=== PATIENT | female | born 1980 | race Caucasian/White ===

== ENCOUNTER 2022-10-28 20:59 | Outpatient (REF) | payer BC, SELFPAY ==
[2022-11-03 21:07] LABS: Age Gdln ACOG Testing Note (.); HPV Aptima Positive (Negative); HPV Genotype 16 Negative (Negative); HPV Genotype 18,45 Negative (Negative); IGP, Aptima HPV, rfx 16/18,45 Note (.)
== END 2022-10-28 21:00 | disposition home or self-care (01) ==
LOC: LAB 20:59
PROVIDERS: Visit Provider Physician Assistant
DX: Z12.4 Encounter for screening for malignant neoplasm of cervix (principal)
CPT/HCPCS: G0145

== ENCOUNTER 2022-11-18 09:17 | Outpatient (OUT) | payer BC, SELFPAY ==
--- NOTE | 2022-11-18 09:28 | MM_ITS ---
Patient: SWATI PEDROZA Exam Date: 11/18/2022 : 1980 Gender:F Ordering : CORRIE Riddle . Admission #: [id number] Family : NON-STAFF PHYSICIAN Order #: [id number] CLICK HERE TO VIEW EXAM RADIOLOGY REPORT PROCEDURE: MM TOMOSYNTHESIS SCREENING BI COMPARISON: None. INDICATIONS: Screening Calculator Name NCI Breast Cancer Risk Assessment Tool 5 Year Breast Cancer Risk 0.50% Lifetime Breast Cancer Risk 8.50% Personal Breast Cancer No Personal Ovarian Cancer No Treatments None Family Cancers None LOCATION: [facility] BREAST COMPOSITION: Scattered areas fibroglandular density. FINDINGS: DIAGNOSTIC CATEGORY 1--NEGATIVE. RIGHT BREAST: No significant suspicious finding. LEFT BREAST: No significant suspicious finding. RECOMMENDATIONS: ROUTINE MAMMOGRAM AND CLINICAL EVALUATION IN 12 MONTHS. PLEASE NOTE: A NORMAL MAMMOGRAM DOES NOT EXCLUDE THE POSSIBILITY OF BREAST CANCER. A CLINICALLY SUSPICIOUS PALPABLE LUMP SHOULD BE BIOPSIED. Dictated by: Amauri Cardenas MD on 11/18/2022 at 10:53 Approved by: Amauri Cardenas MD on 11/18/2022 at 10:54
== END 2022-11-18 09:18 | disposition home or self-care (01) ==
LOC: MAMMO 09:20
PROVIDERS: Visit Provider Physician Assistant
DX: Z12.31 Encounter for screening mammogram for malignant neoplasm of breast (principal)
CPT/HCPCS: 77063; 77067

== ENCOUNTER 2023-11-01 20:54 | Outpatient (REF) | payer SELFPAY | END 2023-11-01 20:55 | disposition home or self-care (01) | LOC: LAB 20:54 | PROVIDERS: Visit Provider Physician Assistant | DX: Z01.419 Encounter for gynecological examination (general) (routine) without abnormal findings (principal) | CPT/HCPCS: 87624; 88175 ==

== ENCOUNTER 2024-12-18 20:01 | Outpatient (REF) | payer SELFPAY ==
--- OUTSIDE RECORDS SUMMARY | 2024-12-18 13:00 | XMS_ITS | Encounter Summary ---
Author Organization [facility] Address [address] [place] [address] Care Team Providers Care Media Sales Consultant Name Role Phone Litzy Jessica Stevens MD Primary Care Provider [phone] Jesica Cobb ANALYST [facility] Unavailable [phone] Reason for Visit * ReasonCommentsWell Women Visit Encounter Details DateTypeDepartmentCare Team (Latest Contact Info)Mgstgnllxjq79/03/2025 1:00 PM ESTProcedure Visit SUMA Douglas OBPATRICK [address] [address] Elif Riddle PA [address] [place], [place] [id number] Well woman exam with routine gynecological exam; Encounter for screening mammogram for malignant neoplasm of breast Social History Tobacco UseTypesPacks/DayYears UsedDateSmoking Tobacco: NeverSmokeless Tobacco: NeverAlcohol UseStandard Drinks/WeekCommentsNot Currently0 (1 standard drink = 0.6 oz pure alcohol)Caffeine intake: 1-2 cups per dayHumiliation, Afraid, Rape, and Kick questionnaireAnswerDate RecordedWithin the last year, have you been afraid of your partner or ex-partner?No12/08/2022Within the last year, have you been humiliated or emotionally abused in other ways by your partner or ex-partner?No12/08/2022Within the last year, have you been kicked, hit, slapped, or otherwise physically hurt by your partner or ex-partner?No12/08/2022Within the last year, have you been raped or forced to have any kind of sexual activity by your partner or ex-partner?No12/08/2022Social Connection and Isolation Panel AnswerDate RecordedIn a typical week, how many times do you talk on the phone with family, friends, or neighbors?Once a week12/08/2022How often do you get together with friends or relatives?Once a week12/08/2022How often do you attend muslim or episcopal services?More than 4 times per year12/08/2022o you belong to any clubs or organizations such as muslim groups, unions, [employer] or athletic groups, or school groups?No12/08/2022How often do you attend meetings of the clubs or organizations you belong to?Never12/08/2022re you , , , , never , or living with a partner? 12/08/2022UDIT-CAnswerDate RecordedQ1: How often do you have a drink containing alcohol?Never01/20/2024Q2: How many drinks containing alcohol do you have on a typical day when you are drinking?Patient does not drink01/20/2024Q3: How often do you have six or more drinks on one occasion?Never01/20/2024Overall Financial Resource Strain (CARDIA)AnswerDate RecordedHow hard is it for you to pay for the very basics like food, housing, medical care, and heating?Hard12/08/2022HQ-2 AnswerDate RecordedPatient Health Questionnaire-2 Hfguy38503/22/2023[facility] [place] of Occupational Health - Occupational Stress QuestionnaireAnswerDate RecordedDo you feel stress - tense, restless, nervous, or anxious, or unable to sleep at night because yourmind is troubled all the time - these days?Not at all 12/08/2022Exercise Vital SignAnswerDate RecordedOn average, how many days per week do you engage in moderate to strenuous exercise (like a brisk walk)?6 days 12/08/2022On average, how many minutes do you engage in exercise at this level? 150+ min12/08/2022Hunger Vital SignAnswerDate RecordedWithin the past 12 months, you worried that your food would run out before you got the money to buymore. Sometimes true12/08/2022Within the past 12 months, the food you bought just didn't last and you didn't have money to get more.Sometimes true12/08/2022 PRAPARE - TransportationAnswerDate RecordedIn the past 12 months, has lack of transportation kept you from medical appointments or from getting medications?No 12/08/2022In the past 12 months, has lack of transportation kept you from meetings, work, or from getting things needed for daily living?No12/08/2022 Housing Stability Vital SignAnswerDate RecordedIn the last 12 months, was there a time when you were not able to pay the mortgage or rent on time?Yes12/08/2022 In the last 12 months, how many places have you lived?110In the last 12 months, was there a time when you did not have a steady place to sleep or slept in ashelter (including now)?No12/08/2022CommentsNoSex and Gender InformationValueDate RecordedSex Assigned at QmpdtCzbloj62/12/2023 6:24 PM EDT Legal VltMtrhbr01/15/2023 7:59 PM EDTGender EetucbhsNsravw73/15/2023 7:59 PM EDT Sexual TfncgjtasudWqfmlutx80/12/2023 6:24 PM EDTdocumented as of this encounter Last Filed Vital Signs Vital SignReadingTime TakenCommentsBlood Jiobpfjc607/8011 1:08 PM EST Pulse--Temperature--Respiratory Rate--Oxygen Saturation--Inhaled Oxygen Concentration--Jkbhes81.3 kg (194 lb 12 oz)12/18/2024 1:08 PM ESTHeight--Body Mass Index32.4112 8:15 AM ESTdocumented in this encounter Progress Notes * CORRIE Ding - 12/18/2024 1:00 PM EST Reason for Appointment: Patient ID: Iris Clark is a 44 y.o. female who presents for Well Women Visit Patient presents today for Annual Exam. 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 Mixed hyperlipidemia 10/03/2020 Obesity with body mass index 30 or greater 04/04/2019 Type 2 diabetes mellitus without complication, without long-term current use of insulin (HCC) 04/05/2019 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 Nonalcoholic fatty liver 07/20/2023 Resolved Ambulatory Problems Diagnosis Date Noted 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 Elevated liver enzymes 04/05/2019 Folliculitis 08/06/2016 Overweight (BMI 25.0-29.9) 12/09/2022 Pure hypercholesterolemia 07/04/2019 Past Medical History: Diagnosis Date Acne BMI 30.0-30.9,adult Conductive hearing loss, unspecified laterality Depression screening Diabetes mellitus ([facility]) 2018 Encounter for gynecological examination (general) (routine) without abnormal findings Fatty liver Fracture History of early menarche Oral contraceptive use Pre-diabetes induced hypertension (HHS-HCC) Sciatica HISTORY PAST MEDICAL HISTORY SOCIAL HISTORY Past Medical History: Diagnosis Date Acne as teenager BMI 30.0-30.9,adult Conductive hearing loss, unspecified laterality 2nd to cerumen-left ear Depression screening Diabetes mellitus ([facility]) 2019 Encounter for gynecological examination (general) (routine) without abnormal findings Fatty liver Fracture Fracture at wrist and/hand level-right hand DIP fracture History of early menarche Oral contraceptive use Pre-diabetes induced hypertension (HHS-HCC) resolved after delivery Sciatica unspecified laterality Social History Tobacco Use Smoking status: Never Smokeless tobacco: Never Vaping Use Vaping status: Never Used Substance Use Topics Alcohol use: Not Currently Comment: Caffeine intake: 1-2 cups per day Drug use: Never FAMILY HISTORY Family History Problem Relation Name Age of Onset Diabetes Mother Edna Marian Heart attack Father Devyn Balderama Diabetes Father Devyn Balderama Hypertension Father Devyn Balderama Heart disease Father Quang Shaver Balderama Alcohol abuse Father Quang Shaver Balderama Glaucoma Maternal Grandmother Ashleigh Ayse Mental illness Maternal Grandmother Ashleigh Ayse Hypertension Paternal Grandmother [place] Balderama Heart disease Paternal Grandmother Carmencita Balderama Alcohol abuse Paternal Grandfather Hosea Rivas Alcohol abuse Father's Brother Hosea Rivas SURGICAL HISTORY Past Surgical History: Procedure Laterality Date SECTION, LOW TRANSVERSE x2 (01/23);/pre-eclampsia (05/23) REVIEW OF SYSTEMS Review of Systems: Review of Systems Constitutional: Negative. HENT: Negative. Eyes: Negative. Respiratory: Negative. Cardiovascular: Negative. Gastrointestinal: Negative. Genitourinary: Negative. Musculoskeletal: Negative. Skin: Negative. Neurological: Negative. All other systems reviewed and are negative. Hematological: Negative. Endocrine: Negative. Allergic/Immunologic: Negative. OBJECTIVE Objective: Physical Exam Constitutional: Appearance: Normal appearance. Genitourinary: Right Adnexa: not tender and no mass present. Left Adnexa: not tender and no mass present. No cervical discharge. Breasts: Breasts are soft. Right: Normal. Left: Normal. HENT: Head: Normocephalic. Nose: Nose normal. Mouth/Throat: Mouth: Mucous membranes are moist. Cardiovascular: Rate and Rhythm: Normal rate. Pulmonary: Effort: Pulmonary effort is normal. Abdominal: General: Bowel sounds are normal. Palpations: Abdomen is soft. Musculoskeletal: General: Normal range of motion. Cervical back: Normal range of motion. Neurological: General: No focal deficit present. Mental Status: She is alert. Skin: General: Skin is warm and dry. Psychiatric: Mood and Affect: Mood normal. Vitals and nursing note reviewed. Exam conducted with a milk treater present. Vitals: Estimated body mass index is 32.41 kg/m?? as calculated from the following: Height as of 01/20/24: 5' 5 . Weight as of this encounter: 194 lb 12 oz. BP: 108/80 Patient's last menstrual period was 12/11/2024 (approximate). Assessment/Plan ICD-10-CM 1. Well woman exam with routine gynecological exam Z01.419 THIN PREP TIS PAP AND HR HPV DNA 2. Encounter for screening mammogram for malignant neoplasm of breast Z12.31 Bilateral screening mammogram Bilateral screening mammogram Annual: Patient presents today for an annual exam. Patient states she is doing well and has no complaints. Pap was obtained without difficulty and patient given mammogram order to have scheduled/obtained. Orders Placed This Encounter Procedures Bilateral screening mammogram Follow Up: Patient is to return in one year for annual unless needed otherwise. Documented by Clau Craig MA on behalf of: CORRIE Ding documented in this encounter Plan of Treatment DateTypeDepartmentCare Team (Latest Contact Info)Tuodqvzavcu66/05/2026 9:00 AM ESTProcedure Visit [facility] [address] [place] [address] Elif Riddle PA [address] [place] [address] NameTypePriorityAssociated DiagnosesOrder ScheduleBilateral screening mammogram ImagingRoutine Encounter for screening mammogram for malignant neoplasm of breast Expected: 12/18/2024 (Approximate), Expires: 02/17/2026THIN PREP TIS PAP AND HR HPV DNAPathology and CytologyRoutine Well woman exam with routine gynecological exam Ordered: 12/18/2024documented as of this encounter Visit Diagnoses Diagnosis Well woman exam with routine gynecological exam Routine gynecological examination Encounter for screening mammogram for malignant neoplasm of breast documented in this encounter Additional Health Concerns AssessmentNoted TimePHQ-9 Depression Total Score: 8:00 AM EST documented as of this encounter Care Teams Team MemberRelationshipSpecialtyStart DateEnd Jessica Mcmullen MD PCP - GeneralFamily Medicine07/20/23 Jesica Cobb NP [address] [place] [address] Nurse PractitionerFamily Medicine07/20/23documented as of this encounter
--- OUTSIDE RECORDS SUMMARY | 2024-12-18 20:05 | XMS_ITS | CCD ---
Author Organization [facility] Care Team Providers Care Bin Piler Name Role Phone DR NESTOR ARANGO Attending Unavailable NBA, DR BAEZ Consulting Unavailable NBA, DR BAEZ Admitting Unavailable BRENDA SULLIVAN Attending Unavailable ELIF LEWIS Attending Unavailable Jessica Mcghee MD Primary Care Provider Brenda Sullivan NP Unavailable [phone] Brenda Sullivan NP Unavailable Jessica Mcghee MD Primary Care Provider Jessica Mcghee MD Primary Care Provider Medications Current Medications MedicationDrug Class(es)DatesSig (Normalized)Sig (Original)atorvastatin 20 mg oral tablet (13 sources)HMG-CoA Reductase InhibitorStart: 12-10-2022 End: 00-63-7761roje 1 tablet by mouth once dailyatorvastatin (Lipitor) 20 MG tablet Indications: Mixed hyperlipidemia Take 1 tablet (20 mg) by mouth Daily 90 tablet 3 01/20/2024 01/19/2025 Activeethinyl estradiol 0.035 mg / norgestimate 0.25 mg oral tablet (11 sources)Progestin, EstrogenStart: 18-97-0784uzcq 1 tablet by mouth in the morningMono-Linyah 0.25-35 MG-MCG tablet Indications: control counseling TAKE 1 TABLET BY MOUTH IN THE MORNING 28 tablet 3 12/11/2024 ActiveStart: 54-80-4707bsdawelkhmfp-ethinyl estradiol ([place]-Linyah) 0.25-35 MG-MCG tablet Indications: control counseling Take 1 tablet by mouth in the morning. 28 tablet 1 01/10/2024 ActiveStart: 33-96-7913xjlb 1 tablet by mouth once daily in the morningMono-Linyah 0.25-35 MG-MCG tablet Indications: control counseling TAKE 1 TABLET BY MOUTH EVERY MORNING 28 tablet 1 11/16/2023 Active Start: 73-90-9230jhgleghlkslj-ethinyl estradiol (Ortho-Cyclen) 0.25-35 MG-MCG tablet Indications: control counseling Take 1 tablet by mouth in the morning. 28 tablet 12 10/28/2022 Activelisinopril 5 mg oral tablet (5 sources)Angiotensin Converting Enzyme InhibitorStart: 01-20-2024 End: 90-39-5326xiss 1 tablet by mouth once dailylisinopril 5 MG tablet Indications: Type 2 diabetes mellitus without complication, without long-term current use of insulin (HCC) , Elevated blood pressure reading Take 1 tablet (5 mg) by mouth Daily90 tablet 3 01/20/2024 01/14/2025 ActivemetFORMIN hydrochloride 500 mg oral tablet (13 sources)BiguanideStart: 07-20-2023 End: 24-55-4503wqcy 1 tablet by mouth at mealtimemetFORMIN (Glucophage) 500 MG tablet Indications: Type 2 diabetes mellitus without complication, without long- term current use of insulin (HCC) Take 1 tablet (500 mg) by mouth in the morning. Take with meals. 90 tablet 3 01/20/2024 01/19/2025 Active Problems Active Problems Problem ClassificationProblemDateDocumented DateEpisodic/ChronicDiabetes mellitus without complication (13 sources)Type 2 diabetes mellitus without complication; Translations: [Type 2 diabetes mellitus without complications]Onset: hronic Disorders of lipid metabolism (20 sources)Mixed hyperlipidemia; Translations: [Mixed hyperlipidemia]Onset: 07-04-2019 Resolved: 265415-56-4543XyrounpQvlacecpjcscp and screening for infectious disease (1 source)Encounter for screening for human papillomavirus (HPV); Translations: [ENC SCREENING HUMAN PAPILLOMAVIRUS]Onset: 35-13-0772BpqbrgmzOnbfo circulatory disease (2 sources)Elevated blood pressure; Translations: [Elevated blood-pressure reading, without diagnosis of hypertension]34-92-2278YmovgrrkCpnut liver diseases (13 sources)Non-alcoholic fatty liver; Translations: [Fatty (change of) liver, not elsewhere classified]Onset: 845161-13-5740GnmwwmrEwfkj liver diseases (2 sources)Non-alcoholic fatty liver disease without non-alcoholic steatohepatitis; Translations: [Fatty (change of) liver, not elsewhere classified]Onset: 494004-29-2658SwtjjgnLtwoi nutritional; endocrine; and metabolic disorders (11 sources)Body mass index 30+ - obesity; Translations: [Obesity, unspecified] Onset: 621671-46-1909DawyygzOvnxq screening for suspected conditions (not mental disorders or infectious disease) (11 sources)Encounter for screening for malignant neoplasm of cervix; Translations: [Patient encounter status]Onset: 22-69-4717Ggvfesja Past or Other Problems Problem ClassificationProblemDateDocumented DateEpisodic/ChronicDiseases of mouth; excluding dental (13 sources)Geographic tongue; Translations: [Geographic tongue]Onset: 022718-63-4844ZuvkvjzePyom disorders (5 sources)Mood disordersOnset: Other circulatory disease (11 sources)Acquired arteriovenous fistula aneurysm; Translations: [Arteriovenous fistula, acquired]Onset: 10-03-2020 Resolved: 663855-55-8131BbvodqiPvhnn eye disorders (11 sources)Xanthelasma; Translations: [Xanthelasma of unspecified eye, unspecified eyelid]Onset: 360573-59-9668TgzvnzagHebzb liver diseases (11 sources)Elevated liver enzymes level; Translations: [Abnormal levels of other serum enzymes]Onset: 04-05-2019 Resolved: 052610-79-4036IzyomzvkWwida nutritional; endocrine; and metabolic disorders (11 sources)Body mass index 25-29 - overweight; Translations: [Overweight]Onset: 12-09-2022 Resolved: 280526-73-4450ApfhmzllGromv skin disorders (11 sources)Disorder of skin; Translations: [Follicular disorder, unspecified] Onset: 714687-36-3549IlvqmwptChgfe skin disorders (11 sources)Folliculitis; Translations: [Follicular disorder, unspecified]Onset: 08-06-2016 Resolved: 237458-65-4009Gneaaeqs Results Test NameValueInterpretationReference RangeFacilityIGP,APTIMA HPV,AGE GDLNon 55-11-0537XQW GDLN ACOG TESTINGNote.NOMS HealthcareComment on above:TESTS RESULT FLAG UNITS REF RANGE LAB Clinician Provided Cytology Information Source.............Cervix;Endocervix No. of containers..01 ThinPrep Vial Age Algo ACOG Ana... FLAG LEGEND: L-Low Normal,H-High Normal,LL-Alert Low,HH-Alert High <-Panic Low,>-Panic High,A-Abnormal,AA-Critical Abnormal Performed at: 01 =[facility] [address] [place] [address] Izzy Elena MD, HPV APTIMANegativeNegativeNOMS HealthcareComment on above:This nucleic acid amplification test detects fourteen high- risk HPV types (16,18,31,33,35,39,45,51,52,56,58,59,66,68) without differentiation. Performed at: =[address], [place] [id number] Gasoline Tractor Operator: Izzy Elena MD, Phone: [phone] Performed at: [facility] [address] [place], [place] [id number] Gasoline Tractor Operator: Jules Ricketts MD, Phone: [phone] IGP, APTIMA HPV, RFX 16/18,45Note.NOMS HealthcareComment on above:TESTS RESULT FLAG UNITS REF RANGE LAB DIAGNOSIS: 02 NEGATIVE FOR INTRAEPITHELIAL LESION OR MALIGNANCY. THIS SPECIMEN WAS RESCREENED PART OF OUR VICE PRESIDENT UNDERWRITING PROGRAM. Specimen adequacy: 02 Satisfactory for evaluation. No endocervical component is identified. Performed by: 02 Crissy Loredo, Military Pay Technician ([facility]) QC reviewed by: 02 Pedro Luis Marte, Military Pay Technician ([facility]) . 02 Note: Note 03 The Pap smear is a screening test designed to aid in the detection of premalignant and malignant conditions of the uterine cervix. It is not a diagnostic procedure and should not be used as the sole means of detecting cervical cancer. Both false-positive and false-negative reports do occur. Test Methodology: Note 03 This liquid based ThinPrep(R) pap test was screened with the use of an image guided system. HPV Genotype Reflex Note 02 Criteria not met, HPV Genotype not performed. FLAG LEGEND: L-Low Normal,H-High Normal,LL-Alert Low,HH-Alert High <-Panic Low,>-Panic High,A-Abnormal,AA-Critical Abnormal Performed at: 02 [facility] [address] [place] [address] Jules Ricketts MD, [address] [address] Izzy Elena MD, BRUSH-SPATULA CERVIX ENDOCERVIX [facility] ACOG PANEL 2: 30 to 65on 10-03-2021..NormalThe [facility] Defiance HospitalComment on above:Result Comment: Performed at: WBPerformed By: #### [id number] #### [facility] [address] [place] [address] Dr. Tay Aguirre Gdln ACOG Udbxclk15-95MdhclgIypGenesis HospitalComment on above:Performed By: #### [id number] #### [facility] [address] [place] [address] Dr. Tay LeachDIAGNOSIS:CommentLake County Memorial Hospital - West on above: Result Comment: NEGATIVE FOR INTRAEPITHELIAL LESION OR MALIGNANCY. Performed at: WBPerformed By: #### [id number] #### [facility] [address] [place] [address] Dr. Tay LeachHPV AptimaNegativeNormalNegativeMercy HealthComcorewell health zeeland hospital on above:Result Comment: This nucleic acid amplification test detects fourteen high-risk HPV types (16,18,31,33,35,39,45,51,52,56,58,59,66,68) without differentiation. Performed at: =GPerformed By: #### [id number] #### [facility] [address] [place] [address] Dr. Tay LeachMethodology:CommentNoGenesis HospitalComcorewell health zeeland hospital on above: Result Comment: This liquid based ThinPrep(R) pap test was screened with the use of an image guided system. Performed at: WBPerformed By: #### [id number] #### [facility] [address] [place] [address] Dr. Tay LeachNote:CommentTrumbull Memorial HospitalComment on above:Result Comment: The Pap smear is a screening test designed to aid in the detection of premalignant and malignant conditions of the uterine cervix. It is not a diagnostic procedure and should not be used as the sole means of detecting cervical cancer. Both false-positive and false-negative reports do occur. . Performed at: WBPerformed By: #### [id number] #### [facility] [address] [place] [address] Dr. Tay LeachPerformed by:CommentLake County Memorial Hospital - West on above: Result Comment: Kalani Sanchez, Military Pay Technician (ASCP) Performed at: WBPerformed By: #### [id number] #### [facility] [address] [address] [address] Tay LeachSpecimejuan adequacy:CommentTrumbull Memorial HospitalComcorewell health zeeland hospital on above:Result Comment: Satisfactory for evaluation. Endocervical and/or squamous metaplastic cells (endocervical component) are present. Performed at: WBPerformed By: #### [id number] #### [facility] [address] [place] [address] Dr. Tay LeachMicroalbumin (with Creat)on 71-10-0589aPKZ1.1 mg/dLNormalNoatrium health huntersvillen [facility] SpecialistComment on above:Result Comment: mALB reference range not established.Performed By: #### mALBC #### [facility] [address], [place] [id number]/Creat Ratio9.7 MCG/MGNormalNorthonorhealth john c. lincoln medical centern Manchester Memorial HospitalComment on above:Result Comment: The ADA (Diabetes Care 26:S94-S98, 2003) defines abnormalities in Albumin excretionas follows: Category Result (MCG/MG Creatinine) Normal <30 Microalbuminuria 30-299 Clinical Albuminuria > or = 300Performed By: #### mALBC #### [facility] [address], [place] [id number] mg/pYNcltzf07-811Hmwmucdi [place] Personal Fitness Trainer Comment on above:Performed By: #### mALBC #### [facility] [address], [place] [id number] Blood Counton 32-71-7528Fvaeveydkux distribution width (RBC) [Ratio]12.8 %Uiuied76.0-15.0Northonorhealth john c. lincoln medical centern [place] [facility] SpecialistComment on above:Performed By: #### LIPD, CMP, CBC #### [facility] [address], [place] [id number] (Bld) [Volume fraction]42.5 %Jhxvat00.0-47.0 [facility] SpecialistComment on above:Performed By: #### LIPD, CMP, CBC #### [facility] [address], [place] [id number] (Bld) [Mass/Vol]13.7 g/kZHdcryy64.6-15.5rtToledo Hospital SpecialistComment on above:Performed By: #### LIPD, CMP, CBC #### [facility] [address], [place] [id number] (RBC) [Entitic mass]29.3 lyMvnjjq31.0-33.0NoSalem City Hospital SpecialistComment on above:Performed By: #### LIPD, CMP, CBC #### [facility] [address], [place] [id number] (RBC) [Mass/Vol]32.2 g/cTTumgaf21.0-36.0[facility] SpecialistComment on above:Performed By: #### LIPD, CMP, CBC #### [facility] [address], [place] [id number] (RBC) [Entitic vol]91 nQNkmksd07-909Diahjbcj [place] [facility] SpecialistComment on above:Performed By: #### LIPD, CMP, CBC #### [facility] [address], [place] [id number] mean volume (Bld) [Entitic vol]12.00 fLNormal 7.50-12.50NoSalem City Hospital SpecialistComment on above:Performed By: #### LIPD, CMP, CBC #### [facility] [address], [place] [id number] (Bld) [#/Vol]218 10*3/fHWvvauq619-282Bvbgnjep [place] [facility] SpecialistComment on above:Performed By: #### LIPD, CMP, CBC #### [facility] [address], [place] [id number] (Bld) [#/Vol]4.68 10*6/uLNormal3.90-5.20NoSalem City Hospital SpecialistComment on above:Performed By: #### LIPD, CMP, CBC #### [facility] [address], [place] [id number]-AK38.1 yFYrfuhm59.0-50.0NoSalem City Hospital Specialist Comment on above:Performed By: #### LIPD, CMP, CBC #### [facility] [address], [place] [id number] (Bld) [#/Vol]7.0 10*3/uLNormal3.8-11.0NoSalem City Hospital SpecialistComment on above:Performed By: #### LIPD, CMP, CBC #### [facility] [address], [place] [id number] Metabolic Panelon 41-84-9380Mefodgk [Mass/Vol] 3.9 g/dLNormal3.6-5.1NortherMcKitrick Hospital SpecialistComment on above:Performed By: #### LIPD, CMP, CBC #### [facility] [address], [place] [id number]/Globulin [Mass ratio]1.3 {ratio}Normal1.0-2.5NoSalem City Hospital SpecialistComment on above:Performed By: #### LIPD, CMP, CBC #### [facility] [address], [place] [id number] [Catalytic activity/Vol]88 U/IVsbhlw49-451Zwxfgkum [place] [facility] SpecialistComment on above:Performed By: #### LIPD, CMP, CBC #### [facility] [address], [place] [id number] [Catalytic activity/Vol]11 U/LNormal6-33NoSalem City Hospital SpecialistComment on above:Result Comment: 01/15/2021 Female reference range changed.Performed By: #### LIPD, CMP, CBC #### [facility] [address], [place] [id number] gap [Moles/Vol]16 mmol/QGorfwl84-52Dzyslqns [place] [facility] SpecialistComment on above:Result Comment: Effective 02/20/2019 reference range changed.Performed By: #### LIPD, CMP, CBC #### [facility] [address], [place] [id number] [Catalytic activity/Vol]11 U/LNormal9-34NortUniversity Hospitals Parma Medical Center Medical SpecialistComment on above:Performed By: #### LIPD, CMP, CBC #### [facility] [address], [place] [id number]/CREA22 RatioNormal6-22NortUniversity Hospitals Parma [facility] Center Personal Fitness Trainer Comment on above:Performed By: #### LIPD, CMP, CBC #### [facility] [address], [place] [id number] [Mass/Vol]9.0 mg/dLNormal8.6-10.2[facility] [place] [facility] SpecialistComment on above:Performed By: #### LIPD, CMP, CBC #### [facility] [address], [place] [id number] [Moles/Vol]105 mmol/SUfhjvh77-152Rjfxxqat [place] [facility] SpecialistComment on above:Performed By: #### LIPD, CMP, CBC #### [facility] [address], [place] [id number] [Moles/Vol]23 mmol/JKbjzpm28-89Vvpnaycz [place] [facility] SpecialistComment on above:Performed By: #### LIPD, CMP, CBC #### [facility] [address], [place] [id number] [Mass/Vol]0.6 mg/dLNormal0.6-1.4Northonorhealth john c. lincoln medical centern [facility] SpecialistComment on above:Performed By: #### LIPD, CMP, CBC #### [facility] [address], [place] [id number] mL/min/1.72e7Shhmam>60[facility] [place] [facility] SpecialistComment on above:Performed By: #### LIPD, CMP, CBC #### [facility] [address], [place] [id number] mL/min/1.88n9Dlnibd>60NoSalem City Hospital SpecialistComment on above:Performed By: #### LIPD, CMP, CBC #### [facility] [address], [place] [id number] (S) [Mass/Vol]2.9 g/dLNormal1.9-3.7NoSalem City Hospital SpecialistComment on above:Performed By: #### LIPD, CMP, CBC #### [facility] [address], [place] [id number] [Mass/Vol]116 mg/rGToxq61-86Qlayvxsu [place] [facility] SpecialistComment on above:Result Comment: For FASTING Glucose --- ADA reference ranges: Normal 65-99 mg/dl Prediabetes 100-125 Diabetes >/= 126Performed By: #### LIPD, CMP, CBC #### [facility] [address], [place] [id number] [Moles/Vol]4.3 mmol/LNormal3.5-5.5NoSalem City Hospital SpecialistComment on above:Performed By: #### LIPD, CMP, CBC #### [facility] [address], [place] [id number] [Mass/Vol]6.8 g/dLNormal6.1-8.1NortherMcKitrick Hospital SpecialistComment on above:Performed By: #### LIPD, CMP, CBC #### [facility] [address], [place] [id number] [Moles/Vol]140 mmol/PDjiecm430-310Nbnwqyef [place] [facility] SpecialistComment on above:Performed By: #### LIPD, CMP, CBC #### [facility] [address], [place] [id number]<0.3NormalNoSalem City Hospital SpecialistComment on above:Performed By: #### LIPD, CMP, CBC #### [facility] [address], [place] [id number] nitrogen [Mass/Vol]13 mg/dLNormal7-25NortToledo Hospital SpecialistComment on above:Performed By: #### LIPD, CMP, CBC #### [facility] [address], [place] [id number] A1Con 77-58-9814QEZ986.50NormalNoSalem City Hospital SpecialistComment on above:Performed By: #### A1C #### [facility] [address], [place] [id number] (Bld) [Mass fraction]6.0 %Normal4.0-6.0NoSalem City Hospital SpecialistComment on above:Performed By: #### A1C #### [facility] [address], [place] [id number] Panelon 76-61-4911Nmlklnlxaww [Mass/Vol]208 mg/dLHigh 125-200NoSalem City Hospital SpecialistComment on above:Result Comment: Low risk < 200mg/dL Borderline risk 201-239 mg/dl High risk > or equal to 240Performed By: #### LIPD, CMP, CBC #### [facility] [address], [place] [id number] in HDL [Mass/Vol]75 mg/dLNormal>40NoSalem City Hospital SpecialistComment on above:Result Comment: High Cardiovascular Risk HDL <40 mg/dL Low Cardiovascular Risk HDL > or equal to 60 mg/dlPerformed By: #### LIPD, CMP, CBC #### [facility] [address], [place] [id number] in LDL [Mass/Vol]103 mg/dLNormalNortToledo Hospital SpecialistComment on above:Result Comment: LDL ATP III CLASSIFICATION LDL less than 100 mg/dl Optimal LDL 100-129 mg/dl Near or above optimal LDL 130-159 Borderline high LDL 160-189 High LDL greater than 189 mg/dl Very HighPerformed By: #### LIPD, CMP, CBC #### [facility] [address], [place] [id number] in VLDL [Mass/Vol]30 mg/dLNormalNorthern [facility] SpecialistComment on above:Performed By: #### COLIN VELASQUEZ, CBC #### [facility] [address], [place] [id number].total/Cholesterol in HDL [Mass ratio]3 {ratio} NormalNorthern [facility] SpecialistComment on above:Performed By: #### LIPD, CMP, CBC #### [facility] [address], [place] [id number] [Mass/Vol]149 mg/zTLubdqt85-835Abnvaypi [facility] SpecialistComment on above:Result Comment: TRIG ATPIII CLASSIFICATIONS TRIG less than 150 mg/dl Normal TRIG 150-199 mg/dl Borderline High TRIG 200-500 mg/dl High TRIG greather than 500 mg/dl Very HighPerformed By: #### EVA, CMP, CBC #### [facility] [address], [place] [id number] Vital Signs Date TimeVital SignValuePerforming CiiukakxuRvdloqzq39-54-6558 13:08-0500Body mass index (BMI) [Ratio]32.41 kg/m2Elif DENTON Work Phone: [facility] CenterZiliyievob30-02-7832 13:08-0500Body goswid90.34 kgElif DENTON Work Phone: [facility] CenterSezpimdzio49-27-5989 13:08-0500Diastolic blood nuisethz67 mm[Hg]Elif DENTON Work Phone: [facility] CenterZklkqfacju64-80-1725 13:08-0500Systolic blood vjjdstav962 mm[Hg]Elif DENTON Work Phone: [facility] CenterQodxbdxwpn28-74-7854 08:15-0500Body .1 Raphael Sullivan NP Work Phone: noUniversity HospitalBeffeaqktu16-95-2752 08:15-0500Body mass index (BMI) [Ratio]29.15 kg/w6FjoukmjfBrenda Sullivan NP Work Phone: [address] [phone] 08:15-0500Body mfjwfo47.47 kgrayemileemerlyn Reza GALLARDO Work Phone: [address] [phone] 08:15-0500Diastolic blood mm[Hg]Brenda Reza SHIRT FOLDING MACHINE OPERATOR Work Phone: [address] [phone] 08:15-0500Heart rate68 /min Brenda Reza SHIRT FOLDING MACHINE OPERATOR Work Phone: [address] [phone] 08:15-0500Systolic blood evhzcohf898 mm[Hg]Brenda Reza SHIRT FOLDING MACHINE OPERATOR Work Phone: [address] [phone] 09:08-0400Body euwipf605.1 Jacqueline DENTON Work Phone: [facility] CenterYibhelggov31-07-2017 09:08-0400Body mass index (BMI) [Ratio]28.83 kg/m2Elif DENTON Work Phone: [address] [phone] 09:08-0400Body ceeysa00.59 kgElif DENTON Work Phone: [address] [place] [phone] 09:08-0400Diastolic blood eqcbutsn35 mm[Hg]Elif DENTON Work Phone: [address] [phone] 09:08-0400Systolic blood wsufjcls319 mm[Hg]Elif DENTON Work Phone: [facility] Encounters Encounter DateEncounter TypeCare ProviderFacilityStart: 12-18-2024 End: 38-95-0478Mpcqab flowsheetElif DENTON Work Phone: [facility] OBGYNStart: 12-18-2024 End: 87-36-5395Znbdxa flowsheetElif DENTON Work Phone: [facility] OBGYNStart: 12-18-2024 End: 87-70-7559Tmrtfzl encounter procedureElif DENTON Work Phone: [facility] HealthcareStart: 12-18-2024 End: 13-92-4423Wghegriz preventive med est patient 40-64yrsAmy Janessa DENTON Work Phone: [facility]ael OBGYNComment on above:Well woman exam with routine gynecological exam; Encounter for screening mammogram for malignant neoplasm of breastStart: 01-21-2024 End: 56-08-1377Immqbfyrs encounterSkaren Sullivan NP Work Phone: NOL[facility] FNR FMComment on above:ResultsStart: 01-20-2024 End: 89-42-2063Mtatsh flowsYuli Sullivan NP Work Phone: [facility] FNR FMStart: 01-20-2024 End: 88-40-4055Tvgzoi Jacquelyn Sullivan NP Work Phone: [facility] FNR FMStart: 01-20-2024 End: 97-81-0747Kyagmpd encounter statusSacarson Sullivan NP Work Phone: n[facility] HealthcareStart: 01-20-2024 End: 38-09-6029Fsdqfrei preventive med est patient 40-64yrsSkaren Sullivan NP Work Phone: NONM FNR FMComment on above:Wellness examination (Primary Dx); Nonalcoholic fatty liver; Type 2 diabetes mellitus without complication, without long-term current use of insulin (CMS/HCC); Geographic tongue; Mixed hyperlipidemia (CMS/HCC); Screening for cardiovascular condition; Screening for lipid disorders; Elevated blood pressure reading; Type 2 diabetes mellitus without complication, without long-term current use of insulin (CMS/HCC)Start: 12-08-2023 End: 92-50-4368Gwyrsmonw encounterJessica Mcghee MD Work Phone: [facility] FNR FMStart: 11-01-2023 End: 29-87-7984Fwwjsg Gigi DENTON Work Phone: [facility] BCP OBStart: 11-01-2023 End: 93-07-6383Vbcgbe Gigi DENTON Work Phone: [facility] BCP OBStart: 11-01-2023 End: 53-80-3012Qgmdkpgny Result EncounterElif DENTON Work Phone: [facility] External Department UnsolicitedStart: 11-01-2023 End: 74-73-2308Agfrfoo encounter procedureElif DENTON Work Phone: [facility] HealthcareStart: 11-01-2023 End: 01-42-6762Dtjnaoyg preventive med est patient 18-39 yrsElif DENTON Work Phone: [facility] BCP OBComment on above:Well woman exam with routine gynecological exam; Breast cancer screening by mammogramStart: 11-01-2023 End: 83-97-1162iwsjfuegaiHLG RAMEYNot AvailableStart: 07-20-2023 End: 44-76-9723txrqcmfqlyCDILURMZ J HOFFMANNot AvailableStart: 09-29-2021 End: 09-92-5023chgmgvebaeGC NESTOR ARANGOFacility:H1 Procedures DateProcedureProcedure DetailPerforming ClinicianStart: 64-07-9935OLS,APTIMA HPV,AGE GDLNElif DENTON Work Phone: Start: 72-32-8165BsuuiaivmcwEdx Ramey PA Work Phone: Start: 34-73-2434Ffywatoxexd observation [Identifier] in Cervix by Cyto stainElif DENTON Work Phone: Plan of Treatment DateCare ActivityDetailAuthorStart: 12-20-2025 End: 61-28-2050Sdltxya encounter /05/2026 9:00 AM EST Procedure Visit [facility]N [address] [place] [address] Elif Lewis PA [address] [place] [address] NOMCarlos Douglas OBGYNStart: 10-28-2025 Screening for malignant neoplasm of cervixNOMS HealthcareStart: 29-28-3236Ozjza screening for proteinDiabetes: Urine Protein ScreeningNOKS HealthcareStart: 12-18-2024 End: 48-03-2038KQ Breast - bilateral ScreeningBilateral screening mammogram Imaging Routine Encounter for screening mammogram for malignant neoplasm of breast Expected: 12/18/2024 (Approximate), Expires: 02/17/2026[facility] Work Phone: comment on above:Expected: 12/18/2024 (Approximate), Expires: 02/17/2026Start: 12-18-2024 End: 85-36-6789Hugprvu encounter ssyxinqxa95/03/2025 1:00 PM EST Procedure Visit [facility] [address] [place] [address] Elif Lewis PA [address] [place], [place] [id number] ArrivedNOKS Misael OBGYNComment on above:ArrivedStart: 11-01-2024 End: 43-98-7109Xbpbaxu encounter tamtlluna39/17/2025 9:00 AM EDT Office Visit [facility] [address] [place] [address] Elif Lewis, PA [address] [place], [place] [id number] [facility] OBStart: 66-57-2238Sgfsmehpqm A1c measurement Diabetes: Hemoglobin Q0DWIHA HealthcareStart: 50-78-9221Tryopdtdq vaccination Influenza Vaccine (#1)[facility] HealthcareComment on above:Postponed from 10/17/2023 (Patient Refused)Start: 02-18-2024 End: 91-64-0994Yqpcppz encounter fctncsbyq38/03/2025 8:00 AM EST Office Visit [facility] [address] [place] [id number] Brenda Sullivan NP [address] [place] [address] [facility] FMStart: 01-20-2024 End: 50-99-0769Fnxaafcjqvdpa metabolic 2000 panel - Serum or PlasmaComprehensive metabolic panel Lab Routine Wellness examination Screening for cardiovascular condition Expected: 01/20/2024 (Approximate), Expires: 01/19/2025[facility] Work Phone: Comment on above:Expected: 01/20/2024 (Approximate), Expires: 01/19/2025Start: 01-20-2024 End: 88-05-9862Elawtapvcv A1c/Hemoglobin.total in BloodHemoglobin A1c Lab Routine Wellness examination Type 2 diabetes mellitus without complication, without long-term current use of insulin (CMS/HCC) Expected: 01/20/2024 (Approximate), Expires: 01/19/2025[facility] HealthcareComment on above:Expected: 01/20/2024 (Approximate), Expires: 01/19/2025Start: 01-20-2024 End: 83-81-3871Cjscp 1996 panel - Serum or PlasmaLipid panel Lab Routine Wellness examination Screening for lipid disorders Expected: 01/20/2024 (Ada roximate), Expires: 01/19/2025[facility] HealthcareComment on above:Expected: 01/20/2024 (Approximate), Expires: 01/19/2025Start: 01-20-2024 End: 28-59-0589Cumyikjisctx/Creatinine panel in random UrineMicroalbumin / creatinine, urine ratio Lab Routine Wellness examination Type 2 diabetes mellitus without complication, without long-term current use of insulin (CMS/HCC) Expected: 01/20/2024 (Approximate), Expires: 01/19/2025[facility] Comment on above:Expected: 01/20/2024 (Approximate), Expires: 01/19/2025Start: 12-16-2023 End: 74-37-1158Wtagqkn encounter uaxvlyvcx36/31/2024 8:00 AM EDT Office Visit [facility] [address] [place] [address] Brenda Sullivan NP [address], [place] [id number] [facility] FNR FMStart: 49-63-9231Tmazk screening for proteinDiabetes: Urine Protein ScreeningRIVERTON HOSPITAL HealthcareStart: 98-75-9028Dhrbhuwuz for malignant neoplasm of breastMammogramRIVERTON HOSPITAL HealthcareStart: 11-01-2023 End: 70-03-5519HH Breast - bilateral ScreeningBilateral screening mammogram Imaging Routine Breast cancer screening by mammogram Expected: 11/01/2023 (Approximate), Expires: 12/31/2024[facility] Work Phone: comment on above:Expected: 11/01/2023 (Approximate), Expires: 12/31/2024Start: 11-01-2023 End: 93-67-1245Mhtttpu encounter bzdxowwpq48/16/2024 9:00 AM EDT [facility] [address] [place] [address] Elif Lewis PA [address] [place], [place] [id number] [facility] OBComment on above:ArrivedStart: 10-20-2023 Hemoglobin A1c measurementDiabetes: Hemoglobin Y1WGQYD HealthcareStart: 92-75-1928Swtzuztvf vaccinationInfluenza Vaccine (#1)[facility] HealthcareStart: 04-92-7554Lclqb screening for proteinDiabetes: Urine Protein ScreeningSaint Joseph Health CenterStart: 53-04-0041Uybrlyvp screeningDiabetes: Retinopathy ScreeningNOKS HealthcareStart: 22-33-2057Ypelhzove for malignant neoplasm of cervixHPV/Cotest [facility] CenterTHIN PREP TIS PAP AND HR HPV DNATHIN PREP TIS PAP AND HR HPV DNA Pathology and Cytology Routine Well woman exam with routine gynecological exam Ordered: 11/01/2023[facility] HealthcareComment on above:Ordered: 11/01/2023THIN PREP TIS PAP AND HR HPV DNATHIN PREP TIS PAP AND HR HPV DNA Pathology and Cytology Routine Well woman exam with routine gynecological exam Ordered: 12/18/2024[facility] HealthcareComment on above:Ordered: 12/18/2024 Payers DatePayer CategoryPayerPolicy [id number] [id number] Social History DateTypeDetailFacilityStart: 10-03-6105Gqrfvkp smoking status NHISNever smoked tobaccoNOMS HealthcareStart: 13-91-7667Ggjifrg use and exposureSmokeless tobacco non-userNOMS HealthcareStart: 11-01-2023 End: 04-10-2558Faovwcekm beverage intakeEx-drinker (finding)[facility] Start: 12-08-2022 End: 74-97-3376Aexzjcg of Social functionNOMS HealthcareStart: 12-08-2022 End: 96-93-6457Qedxqwcbdvu, Afraid, Rape, and Kick questionnaire [HARK][facility] HealthcareWithin the last year, have you been afraid of your partner or ex-partner?NoNOMS HealthcareAre you now , , , , never or living with a partner?MarriedNOMS HealthcareHow often to you have a drink containing alcohol?Monthly or lessNOMS HealthcareHow many standard drinks containing alcohol do you have on a typical day?1 or 2NOMS HealthcareHow often do you have 6 or more drinks on 1 occasion?NeverNOMS HealthcareHow hard is it for you to pay for the very basics like food, housing, medical care, and heatingHardNOMS HealthcareDo you feel stress - tense, restless, nervous, or anxious, or unable to sleep at night because yourmind is troubled all the time - these days [OSQ]Not at allNOMS Healthcare(I/We) worried whether (my/our) food would run out before (I/we) got money to buy more.Sometimes trueN[facility]S Healthcare Start: 27-83-4990Mx the past 12 months, has lack of transportation kept you from medical appointments or from getting medications?NoNOMS HealthcareIn the past 12 months, was there a time when you were not able to pay the mortgage or rent on time?YesSaint Joseph Health CenterStart: 80-54-6920Qsjrzbi CommentCaffeine intake: 1-2 cups per daySaint Joseph Health CenterStart: 33-07-7316Emb assigned at birthFemalJefferson Memorial HospitalStart: 52-77-0862Ubqvbi identityIdentifies as female gender (finding) [facility] CenterStart: 19-79-5620Dsnjjj orientationHeterosexual (finding)[facility] Medical Equipment Procedure CodeEquipment CodeEquipment Original TextEquipment IdentifierDates1 (one) time each day at the same time. History of Present illness Narrative 12-18-2024 Note Date & NploWcjyUdhcyzdq13-02-7216 History of Present illness Narrative* CORRIE Ding - 12/18/2024 1:00 PM EST [...] (GLUCOPHAGE) 500 mg, Oral, Daily with breakfast Van Zandt-Linyah 0.25-35 MG-MCG tablet 1 tablet, Oral, Every [...] loss, unspecified laterality Depression screening Diabetes mellitus (HCC) 2019 Encounter for gynecological examination (general) (routine) without abnormal findings Fatty liver Fracture History of early menarche Oral contraceptive use Pre-diabetes induced hypertension (HHS-HCC) Sciatica HISTORY PAST MEDICAL HISTORY SOCIAL HISTORY Past Medical History: Diagnosis Date Acne as teenager BMI 30.0-30.9,adult Conductive hearing loss, unspecified laterality 2nd to cerumen-left ear Depression screening Diabetes mellitus (HCC) 2019 Encounter for gynecological examination (general) (routine) [...] Name Age of Onset Diabetes Mother Edna Fonseca Heart attack Father Quang Shaver Balderama Diabetes Father Devyn Balderama Hypertension Father Devyn Balderama Heart disease Father Devyn Balderama Alcohol abuse Father Devyn Balderama Glaucoma Maternal Grandmother Ashleigh Tavera Mental illness Maternal Grandmother Ashleigh Ayse Hypertension Paternal Grandmother [place] Balderama Heart disease Paternal Grandmother [place] Balderama Alcohol abuse Paternal Grandfather Hosea Balderjosephine Alcohol abuse Father's Brother Hosea Rivas SURGICAL [...] nursing note reviewed. Exam conducted with a outreach consultant present. Vitals: Estimated body mass index is 32.41 kg/m as calculated from the following: Height as [...] behalf of: CORRIE Ding documented in this encounterSaint Joseph Health Center Telephone encounter Note 01-21-2024 Note Date & FmowVrpvVvdcivtp23-49-6452 Telephone encounter Note* Telephone Encounter - Brenda Sullivan NP - 01/21/2024 4:08 PM EST Please let patient know labs don't look bad. Glucose was slightly elevated at 109 but A1C was good at 6.2. CMP looked good otherwise, urine micro normal. Cholesterol panel is WNL and better compared to previous year. Ok to repeat yearly. [facility] Note 01-21-2024 Note Date & ChdlFlewLepbfbew22-30-1369 Miscellaneous Notes* Telephone Encounter - Brenda Sullivan NP - 01/21/2024 4:08 PM EST Please let patient know labs don't look bad. Glucose was slightly elevated at 109 but A1C was good at 6.2. CMP looked good otherwise, urine micro normal. Cholesterol panel is WNL and better compared to previous year. Ok to repeat yearly. documented in this encounterNOKS [facility] History of Present illness Narrative 01-20-2024 Note Date & VcqgXpofAttmybhr97-68-7475 History of Present illness Narrative* Brenda Sullivan NP - 01/20/2024 8:00 AM EST Images from the original note were not included. Iris Clark is a 43 y.o. female presents with chief complaint of Annual Exam HPI: HPI Patient presents to the office today for her wellness exam. She does see [facility] and had recent pap, mammogram ordered. Planning to get mammogram. She is due for labs. She did not see GI due to insuranceissues. Has order for mammogram, planning to get done. Works at [employer] year round. UTD on vision exams, needs dental. On control through [facility]. Menses are regular, no concerns. Denies smoking. Does self breast exams. Denies urinary symptoms, no blood in urine or stool. Denies recent changes in BM or family history of colon cancer. Has sleep disturbances at times. Denies anxiety or depression, she is currently from but has been handling it well. SUBJECTIVE: MEDICATIONS: Current Outpatient Medications Medication Instructions atorvastatin (LIPITOR) 20 mg, Oral, Daily glucose blood (Glucose Meter Test) test strip Every 24 hours lisinopril 5 mg, Oral, Daily metFORMIN (GLUCOPHAGE) 500 mg, Oral, Daily with breakfast norgestimate-ethinyl estradiol (Van Zandt-Linyah) 0.25-35 MG-MCG tablet 1 tablet, Oral, Every morning ALLERGIES: No Known Allergies History: Past Medical History: Diagnosis Date Acne as teenager BMI 30.0-30.9,adult Conductive hearing loss, unspecified laterality 2nd to cerumen-left ear Depression screening Diabetes mellitus (CMS/HCC) 2019 Encounter for gynecological examination (general) (routine) without abnormal findings Fatty liver Fracture Fracture at wrist and/hand level-right hand DIP fracture History of early menarche Oral contraceptive use Pre-diabetes induced hypertension resolved after delivery Sciatica unspecified laterality Past Surgical History: Procedure Laterality Date SECTION, LOW TRANSVERSE x2 (01/23);/pre-eclampsia (05/23) Family History Problem Relation Name Age of Onset Diabetes Mother Edna Fonseca Heart attack Father Quang Rivas Diabetes Father Quang Rivas Hypertension Father Quang Rivas Heart disease Father Quang Rivas Alcohol abuse Father Quang Rivas Glaucoma Maternal Grandmother Ashleigh Tavera Mental illness Maternal Grandmother Ashleigh Tavera Hypertension Paternal Grandmother Carmencita Rivas Heart disease Paternal Grandmother Carmencita Gautamderjosephine Alcohol abuse Paternal Grandfather Hosea Rivas Alcohol abuse Father's Brother Hosea Rivas Social History Socioeconomic History Marital status: Spouse name: Not on file Number of children: Not on file Years of education: Not on file Highest education level: Not on file Occupational History Not on file Tobacco Use Smoking status: Never Smokeless tobacco: Never Vaping Use Vaping status: Never Used Substance and Sexual Activity Alcohol use: Not Currently Comment: Caffeine intake: 1-2 cups per day Drug use: Never Sexual activity: Yes Partners: Male control/protection: Other Comment: Control Pill Other Topics Concern Not on file Social History Narrative Not on file Social Drivers of Health Financial Resource Strain: High Risk (12/08/2022) Overall Financial Resource Strain (CARDIA) Difficulty of Paying Living Expenses: Hard Food Insecurity: Food Insecurity Present (12/08/2022) Hunger Vital Sign Worried About Running Out of Food in the Last Year: Sometimes true Ran Out of Food in the Last Year: Sometimes true Transportation Needs: No Transportation Needs (12/08/2022) PRAPARE - Transportation Lack of Transportation (Medical): No Lack of Transportation (Non-Medical): No Physical Activity: Sufficiently Active (12/08/2022) Exercise Vital Sign Days of Exercise per Week: 6 days Minutes of Exercise per Session: 150+ min Stress: No Stress Concern Present (12/08/2022) [place] [employer] - Occupational Stress Questionnaire Feeling of Stress : Not at all Social Connections: Moderately Isolated (12/08/2022) Social Connection and Isolation Panel [NHANES] Frequency of Communication with Friends and Family: Once a week Frequency of Social Gatherings with Friends and Family: Once a week Attends Buddhist Services: More than 4 times per year Active Member of Clubs or Organizations: No Attends Club or Organization Meetings: Never Marital Status: Intimate Partner Violence: Not At Risk (12/08/2022) Humiliation, Afraid, Rape, and Kick questionnaire Fear of Current or Ex-Partner: No Emotionally Abused: No Physically Abused: No Sexually Abused: No Housing Stability: High Risk (12/08/2022) Housing Stability Vital Sign Unable to Pay for Housing in the Last Year: Yes Number of Places Lived in the Last Year: 1 Unstable Housing in the Last Year: No Patient Health Questionnaire-9 Score: 2 I have reviewed and reconciled the history and medication list with the patient today. REVIEW OF SYMPTOMS: Review of Systems Constitutional: Negative for activity change, appetite change and fatigue. HENT: Negative. Respiratory: Negative for cough, shortness of breath and wheezing. Cardiovascular: Negative for chest pain and palpitations. Gastrointestinal: Negative for abdominal pain, diarrhea and nausea. Genitourinary: Negative. Musculoskeletal: Negative. Skin: Negative for color change, rash and wound. Psychiatric/Behavioral: Negative. OBJECTIVE: 10/03/2020 12:00 PM 04/21/2021 12:00 PM 10/28/2022 2:13 PM 12/09/2022 9:31 AM 07/20/2023 1:10 PM 11/01/2023 9:08 AM 01/20/2024 8:15 AM Vitals BMI 28.39 kg/m2 29.35 kg/m2 30.95 kg/m2 31.12 kg/m2 30.69 kg/m2 28.83 kg/m2 29.15 kg/m2 BSA (m2) 1.88 m2 1.92 m2 1.97 m2 1.97 m2 1.96 m2 1.9 m2 1.91 m2 Systolic 118 122 120 132 130 122 128 Diastolic 76 76 70 84 90 82 90 Heart Rate 87 68 68 SpO2 98 % Temp 97.4 F Resp 18 Height (in) 5' 5 5' 5 5' 5 5' 5 5' 5 5' 5 5' 5 Weight (lb) 170.6 176.4 186 187 184.4 173.25 175.2 Visit Report Report Report Report Report Report Physical Exam Vitals reviewed. Constitutional: General: She is not in acute distress. Appearance: Normal appearance. She is not ill-appearing. HENT: Head: Normocephalic and atraumatic. Right Ear: Tympanic membrane, ear canal and external ear normal. Left Ear: Tympanic membrane, ear canal and external ear normal. Nose: Nose normal. No congestion or rhinorrhea. Mouth/Throat: Mouth: Mucous membranes are moist. Pharynx: Oropharynx is clear. No oropharyngeal exudate. Eyes: Extraocular Movements: Extraocular movements intact. Conjunctiva/sclera: Conjunctivae normal. Pupils: Pupils are equal, round, and reactive to light. Cardiovascular: Rate and Rhythm: Normal rate and regular rhythm. Pulses: Dorsalis pedis pulses are 2+ on the right side and 2+ on the left side. Posterior tibial pulses are 2+ on the right side and 2+ on the left side. Heart sounds: No murmur heard. Pulmonary: Effort: Pulmonary effort is normal. No respiratory distress. Breath sounds: Normal breath sounds. No wheezing or rhonchi. Abdominal: General: Bowel sounds are normal. There is no distension. Palpations: Abdomen is soft. Tenderness: There is no abdominal tenderness. Musculoskeletal: General: Normal range of motion. Cervical back: Normal range of motion. No rigidity or tenderness. Right lower leg: No edema. Left lower leg: No edema. Right foot: Normal range of motion. No deformity. Left foot: Normal range of motion. No deformity. Feet: Right foot: Protective Sensation: 5 sites tested. 5 sites sensed. Skin integrity: Skin integrity normal. No ulcer, blister, skin breakdown or erythema. Toenail Condition: Right toenails are normal. Left foot: Protective Sensation: 5 sites tested. 5 sites sensed. Skin integrity: No ulcer, blister, skin breakdown or erythema. Toenail Condition: Left toenails are normal. Comments: Normal foot exam with monofiliment and tuning fork, no neuropathy noted on exam. Lymphadenopathy: Cervical: No cervical adenopathy. Skin: General: Skin is warm and dry. Findings: No rash. Neurological: Mental Status: She is alert. Mental status is at baseline. Psychiatric: Mood and Affect: Mood normal. Behavior: Behavior normal. Thought Content: Thought content normal. Judgment: Judgment normal. ASSESSMENT AND PLAN: Assessment/Plan Diagnoses and all orders for this visit: Wellness examination - Comprehensive metabolic panel; Future - Lipid panel; Future - Hemoglobin A1c; Future - Microalbumin / creatinine, urine ratio; Future -Reviewed family history, risk factors for disease and discussed importance of routine exercise andhealthy diet. Recommended routine dental/eye exams. Declines flu vaccine. Labs ordered for today. Discussed routine screenings and patient is UTD. All questions answered. Nonalcoholic fatty liver - Ambulatory referral to Gastroenterology; Future Type 2 diabetes mellitus without complication, without long-term current use of insulin (CMS/HCC) - Hemoglobin A1c; Future - Microalbumin / creatinine, urine ratio; Future - lisinopril 5 MG tablet; Take 1 tablet (5 mg) by mouth Daily - metFORMIN (Glucophage) 500 MG tablet; Take 1 tablet (500 mg) by mouth in the morning. Take with meals. -Encouraged good diet. Will start lisinopril 5mg for kidney protection and elevated BP today. BP log given to patient to watch at home and will bring her back in 1 month for recheck. Discussed s/s oflow BP. PVU. -Foot exam completed. -Discussed importance of diabetic eye exams. Geographic tongue Mixed hyperlipidemia (CMS/HCC) - atorvastatin (Lipitor) 20 MG tablet; Take 1 tablet (20 mg) by mouth Daily Screening for cardiovascular condition - Comprehensive metabolic panel; Future Screening for lipid disorders - Lipid panel; Future Elevated blood pressure reading - lisinopril 5 MG tablet; Take 1 tablet (5 mg) by mouth Daily -As above. Type 2 diabetes mellitus without complication, without long-term current use of insulin (CMS/HCC) Comments: check A1C, agreed to reduce dose of metformin back to 500mg as long as glucose remains well controlled Orders: - Hemoglobin A1c; Future - Microalbumin / creatinine, urine ratio; Future - lisinopril 5 MG tablet; Take 1 tablet (5 mg) by mouth Daily - metFORMIN (Glucophage) 500 MG tablet; Take 1 tablet (500 mg) by mouth in the morning. Take with meals. Follow up in about 4 weeks (around 02/17/2024) for check up on BP. documented in this encounterNOMS Healthcare Telephone encounter Note 12-08-2023 Note Date & [id number] Telephone encounter Note* Telephone Encounter - Alaina Nguyen - 12/08/2023 10:09 AM EDT Patient called in and is now self pay. She has a wellness scheduled on 12/15, and wants to get a quote on what the appt will cost. Ty [facility] Note 12-08-2023 Note Date & LuhbFkpxRlszolka96-48-7898 Miscellaneous Notes* Telephone Encounter - Alaina Nguyen - 12/08/2023 10:09 AM EDT Patient called in and is now self pay. She has a wellness scheduled on 12/15, and wants to get a quote on what the appt will cost. Ty [facility] History of Present illness Narrative 11-01-2023 Note Date & CrgbSaklMyvkphot62-30-6066 History of Present illness Narrative* CORRIE Ding - 11/01/2023 9:00 AM EDT Reason for Appointment: Patient ID: Iris Clark is a 42 y.o. female who presents for Well Women Visit Patient presents today for Annual Exam. MEDICATIONS Current Outpatient Medications Medication Instructions atorvastatin (LIPITOR) 20 mg, Oral, Daily glucose blood (Glucose Meter Test) test strip Every 24 hours metFORMIN (GLUCOPHAGE) 500 mg, Oral, Daily with breakfast norgestimate-ethinyl estradiol (Ortho-Cyclen) 0.25-35 MG-MCG tablet 1 tablet, Oral, Daily ALLERGIES No Known Allergies PROBLEMS Active Ambulatory Problems Diagnosis Date Noted Elevated liver enzymes 04/05/2019 Follicular disorder 12/09/2022 Geographic tongue 08/06/2016 Mixed hyperlipidemia (CMS/HCC) 10/03/2020 Obesity with body mass index 30 or greater 04/04/2019 Type 2 diabetes mellitus without complication, without long-term current use of insulin (CMS/[facility]) 04/05/2019 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 Nonalcoholic fatty liver 07/20/2023 Resolved Ambulatory Problems Diagnosis Date Noted 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 Folliculitis 08/06/2016 Overweight (BMI 25.0-29.9) 12/09/2022 Pure hypercholesterolemia ([facility]) 07/04/2019 Past Medical History: Diagnosis Date Acne BMI 30.0-30.9,adult Conductive hearing loss, unspecified laterality Depression screening Diabetes mellitus ([facility]) 2018 Encounter for gynecological examination (general) (routine) without abnormal findings Fatty liver Fracture History of early menarche Oral contraceptive use Pre-diabetes induced hypertension Sciatica HISTORY PAST MEDICAL HISTORY SOCIAL HISTORY Past Medical History: Diagnosis Date Acne as teenager BMI 30.0-30.9,adult Conductive hearing loss, unspecified laterality 2nd to cerumen-left ear Depression screening Diabetes mellitus ([facility]) 2018 Encounter for gynecological examination (general) (routine) without abnormal findings Fatty liver Fracture Fracture at wrist and/hand level-right hand DIP fracture History of early menarche Oral contraceptive use Pre-diabetes induced hypertension resolved after delivery Sciatica unspecified laterality Social History Tobacco Use Smoking status: Never Smokeless tobacco: Never Vaping Use Vaping status: Never Used Substance Use Topics Alcohol use: Not Currently Comment: Caffeine intake: 1-2 cups per day Drug use: Never FAMILY HISTORY Family History Problem Relation Name Age of Onset Diabetes Mother Edna Fonseca Heart attack Father Quang Gautamderjosephine Diabetes Father Quang Rivas Hypertension Father Quang Shaver Balderjosephine Heart disease Father Quang Shaver Balderjosephine Alcohol abuse Father Quang Shaver Balderjosephine Glaucoma Maternal Grandmother Ashleigh Tavera Mental illness Maternal Grandmother Ashleigh Tavera Hypertension Paternal Grandmother Carmencita Balderama Heart disease Paternal Grandmother [place] Balderama Alcohol abuse Paternal Grandfather Hosea Gautamderjosephine Alcohol abuse Father's Brother Hosea Rivas SURGICAL [...] nursing note reviewed. Exam conducted with a outreach consultant present. Vitals: Estimated body mass index is 28.83 kg/m as calculated from the following: Height as of this encounter: 5' 5 . Weight as of this encounter: 173 lb 4 oz. BP: 122/82 Patient's last menstrual period was 10/18/2023. ASSESSMENT & PLAN ICD-10-CM 1. Well woman exam with routine gynecological exam Z01.419 THIN PREP TIS PAP AND HR HPV DNA 2. Breast cancer screening by mammogram Z12.31 Bilateral screening mammogram Bilateral screening mammogram Annual Exam: Patient presents today for an annual exam. Patient states she is doing well and has no complaints. Pap was obtained without difficulty. Mammogram order given Orders Placed This Encounter Procedures Bilateral screening mammogram Follow Up: Patient is to return in one year for annual unless needed otherwise. Documented by CORRIE Ding on behalf of: CORRIE Ding documented in this [facility] Evaluation note Note Date & TypeNoteFacilityEvaluation note* Diagnosis Wellness examination- Primary Nonalcoholic fatty liver Type 2 diabetes mellitus without complication, without long-term current use of insulin (CMS/HCC) Geographic tongue Mixed hyperlipidemia ([facility]/HCC) Mixed hyperlipidemia Screening for cardiovascular condition Screening for other and unspecified cardiovascular conditions Screening for lipid disorders Elevated blood pressure reading Elevated blood pressure reading without diagnosis of hypertension documented in this encounter [facility] Evaluation note Note Date & TypeNoteFacilityEvaluation note* Diagnosis Well woman exam with routine gynecological exam Routine gynecological examination Breast cancer screening by mammogram documented in this encounter [facility] Evaluation note Note Date & TypeNoteFacilityEvaluation note* Diagnosis Well woman exam with routine gynecological exam Routine gynecological examination Encounter for screening mammogram for malignant neoplasm of breast documented in this encounter [facility] Summary Purpose Family History No Family History Records FoundNo Family History Records FoundNo Family History Records Found Advance Directives No Advanced Directives Records FoundNo Advanced Directives Records FoundNo Advanced Directives Records Found Additional Source Comments INFORMATION SOURCE (unrecogn ized section and content) DATE CREATED AUTHOR 04/23/2021 [facility] Personal Fitness Trainer DATE CREATED AUTHOR AUTHOR'S ORGANIZ ATION 10/09/2021 [facility] DATE CREATED AUTHOR AUTHOR'S ORGANIZ ATION 11/02/2023 [facility] Medical Specialists EPIC Care Teams (unrecognized sec tion and content) Team MemberRelationshipSpecialtyStart DateEnd Date Jessica Mcghee MD [address] [facility] [place] [address] [facility]CP - [facility]07/20/23 Brenda Sullivan SHIRT FOLDING MACHINE OPERATOR [address] [facility] [place] [address] [facility] Brenda Sullivan NP [address] [facility] [place] [address] Nurse PractitionerBen[facility] Medicine07/20/23Team MemberRelationshipSpecialtyStart DateEnd Date Jessica Mcghee MD [address] [facility] [place] [address] PCP - [facility]07/20/23 Brenda Sullivan NP [address] [facility] [place] [address] Nurse Practition[facility]Ben[facility] Medicine07/20/23Team MemberRelationshipSpecialtyStart DateEnd Date Jessica Mcghee MD [address] [facility] [place] [address] PCP - [facility] Medicine07/20/23 Brenda Sullivan NP [address] [facility] [place] [address] [facility]/20/23Team MemberRelationshipSpecialtyStart DateEnd Date Jessica Mcghee MD [address] [facility] [place] [address] PCP - [facility]07/20/23 Brenda Sullivan NP [address] [facility] [place] [address] Nurse Pract[facility]er[facility]07/20/23Te MemberRelationshipSpecialtyStart DateEnd Date Jessica Mcghee MD [address] [facility] [place] [address] PCP - [facility]07/20/23 Brenda Sullivan NP [address] [facility] [place] [address] PCP - [facility]09/16/23 Brenda Sullivan, SHIRT FOLDING MACHINE OPERATOR [address] [facility] [place] [address] Nurse Pract[facility]er[facility]07/20/23Te MemberRelationshipSpecialtyStart DateEnd Date Jessica Mcghee MD [address] [facility] [place] [address] [facility] - [facility]07/20/23 Brenda Sullivan NP [address] [facility] [place] [address] [facility] - [facility]09/16/23 Brenda Sullivan NP [address] [facility] [place] [address] Nurse Pract[facility]07/20/23Team MemberRelationshipSpecialtyStart DateEnd Date Jessica Mcghee MD PCP - [facility]07/20/23 Brenda Sullivan NP [address] [facility] [place] [address] Nurse Pract[facility]07/20/23Te MemberRelationshipSpecialtyStart DateEnd Date Jessica Mcghee MD PCP - [facility]07/20/23 Brenda Sullivan SHIRT FOLDING MACHINE OPERATOR [address] [facility] [place] [address] Nurse Pract[facility]erNorth[facility]07/20/23 Reason for Visit (unrecogniz ed section and content) ReasonCommentsAnnual ExamReasonOnset KxavUdkwutmoMftcmso50/06/2024ReasonComments Well Women Visit FOR RECORDS PERTAINING TO PATIENTS WHO ARE OR HAVE BEEN ENROLLED IN A CHEMICAL DEPENDENCY/SUBSTANCEABUSE PROGRAM, SOME INFORMATION MAY BE OMITTED. This clinical summary was aggregated from multiple sources. Caution should be exercised in using it in the provision of clinical care. This summary normalizes information from multiple sources, and as a consequence, information in this document may materially change the coding, format and clinical context of patient data. In addition, data may be omitted in some cases. CLINICAL DECISIONS SHOULD BE BASED ON THE PRIMARY CLINICAL RECORDS. [facility]. provides no warranty or guarantee of the accuracy or completeness of information in this document.
--- OUTSIDE RECORDS SUMMARY | 2024-12-18 20:05 | XMS_ITS | Clinical Summary ---
Author Organization [facility] Healthcare Address [address] [place] [address] Care Team Providers Care Delivery Crew Member Name Role Phone Jessica Mcghee MD Primary Care Provider [phone] Jesica Cobb CENTERLESS GRINDING MACHINE ADJUSTER Unavailable [phone] Allergies No known active allergies Medications MedicationSigDispense QuantityRefillsLast FilledStart DateEnd DateStatus glucose blood (Glucose Meter Test) test strip 1 (one) time each day at the same time.Active lisinopril 5 MG tablet Indications:Type 2 diabetes mellitus without complication, without long-term current use of insulin (HCC),Elevated blood pressure readingTake 1 tablet (5 mg) by mouth Daily 90 tablet /5Active metFORMIN (Glucophage) 500 MG tablet Indications:Type 2 diabetes mellitus without complication, without long-term current use of insulin (HCC)Take 1 tablet (500 mg) by mouth in the morning. Take with meals. 90 tablet /5Active atorvastatin (Lipitor) 20 MG tablet Indications:Mixed hyperlipidemiaTake 1 tablet (20 mg) by mouth Daily 90 tablet /5Active Uintah-Linyah 0.25-35 MG-MCG tablet Indications: control counselingTAKE 1 TABLET BY MOUTH IN THE MORNING 28 tablet 3105Active norgestimate-ethinyl estradiol (Uintah-Linyah) 0.25-35 MG-MCG tablet Indications: control counselingTake 1 tablet by mouth in the morning. 28 tablet 309//Discontinued Active Problems ProblemNoted DateDiagnosed DateNonalcoholic fatty liver07/20/2023Follicular eyblsqyc22/25/2023Mixed qmeqpgjvppnowj03/19/2021Type 2 diabetes mellitus without complication, without long-term current use of zinjysx1404/05/2019Obesity with body mass index 30 or avuiqbs3704/04/2019Xanthoma of fqbbia3604/04/2019Geographic yfempv5608/06/2016 Resolved Problems ProblemNoted DateDiagnosed DateResolved DateOverweight (BMI 25.0-29.9)12/09/2022 07/20/2023cquired arteriovenous fzfjfyjn18/ure pemkoapthnkbuljcxxxd22/19/202006/04/2024Elevated liver jlznkay9404/05/2019 01/20/20249130Nwyzkfxcvuim50 Encounters DateTypeDepartmentCare NjwvLrrvqanpqvh81/03/2025 1:00 PM ESTProcedure Visit [facility] [address] [phone] Elif Riddle PA Well woman exam with routine gynecological exam; Encounter for screening mammogram for malignant neoplasm of gvixgb5612/18/2024 Bamboo flowsheet [facility] [address] [facility] [place] [address] Elif Riddle PA 12/18/20240833Jqlvhz97/24/2025Refill [facility] [address] [facility] [place] [address] Elif Riddle PA control fljosxlefh00/16/2025Refill [facility] [address] [facility] [place] [phone] Clau Craig MA control counselingfrom Last 3 Months Family History Medical HistoryRelationNameCommentsAlcohol abuseFatherJuan Sivakumar Gautamderjosephine DiabetesFatherJuan Sivakumar BalderamaHeart attackFatherJuan Sivkaumar BalderamaHeart diseaseFatherJuan Sivakumar BalderamaHypertensionFatherJuan Sivakumar GautamderamaAlcohol abuseFather's BrotherEugene BalderamaGlaucomaMaternal GrandmotherBertha Ayse Mental illnessMaternal GrandmotherBertha LantzDiabetesMotherMarie McCourtAlcohol abusePaternal GrandfatherEugene BalderamaHeart diseasePaternal GrandmotherSalome BalderamaHypertensionPaternal GrandmotherSalome BalderamaRelationNameStatus JtbbuxigJlzwcfq6Prdbtlzj4, healthyFatherJuan Sivakumar GautamderamaDeceasedFather's BrotherEugesummer BalderamaMaternal GrandmotherBertha LantzMotherMarie McCourtAlive Paternal GrandfatherEugene BalderamaPaternal GrandmotherSalome BalderamaSister1 Son1 Social History Tobacco UseTypesPacks/DayYears UsedDateSmoking Tobacco: NeverSmokeless Tobacco: Never Tobacco Cessation:Counseling Given: Not Answered Alcohol UseStandard Drinks/WeekCommentsNot Currently0 (1 standard drink = 0.6 oz pure alcohol)Caffeine intake: 1-2 cups per dayHumiliation, Afraid, Rape, and Kick questionnaireAnswerDate RecordedWithin the last year, have you been afraid of your partner or ex-partner?No12/08/2022Within the last year, have you been humiliated or emotionally abused in other ways by your partner or ex-partner?No 12/08/2022Within the last year, have you been kicked, hit, slapped, or otherwise physically hurt by your partner or ex-partner?No12/08/2022Within the last year, have you been raped or forced to have any kind of sexual activity by your part ner or ex-partner?No12/08/2022Social Connection and Isolation PanelAnswerDate RecordedIn a typical week, how many times do you talk on the phone with family, friends, or neighbors?Once a week12/08/2022How often do you get together with friends or relatives?Once a week12/08/2022How often do you attend mormon or nondenominational services?More than 4 times per year12/08/2022o you belong to any clubs or organizations such as mormon groups, unions, fraternal or athletic waldo ups, or school groups?No12/08/2022How often do you attend meetings of the clubs or organizations you belong to?Never12/08/2022re you , , , , never , or living with a partner?Egceaml6712/08/2022 AUDIT-CAnswerDate RecordedQ1: How often do you have a drink containing alcohol? Never01/20/2024Q2: How many drinks containing alcohol do you have on a typical day when you are drinking?Patient does not drink01/20/2024Q3: How often do you have six or more drinks on one occasion?Never01/20/2024Overall Financial Resource Strain (CARDIA)AnswerDate RecordedHow hard is it for you to pay for the very basics like food, housing, medical care, and heating?Hard12/08/2022HQ-2 AnswerDate RecordedPatient Health Questionnaire-2 Ikufw48103/22/2023Fin[facility] [place] of Occupational Health - Occupational Stress QuestionnaireAnswerDate [...] 12 months, how many places have you lived?In the last 12 months, was there a time when you did not have a steady place to sleep or slept in [place] (including now)?No3CommentsNoSex and Gender InformationValueDate RecordedSex Assigned at AzcspRgirwm18/12/2023 6:24 PM EDT Legal SpcDhzwlk48/15/2023 7:59 PM EDTGender ShirjxeqEejusj79/15/2023 7:59 PM EDT Sexual JrnzbtahzquYtxwxpuv68/12/2023 6:24 PM EDT Last Filed Vital Signs Vital SignReadingTime TakenCommentsBlood Fgmxdtpt260/80102/18/2024 1:08 PM EST Omfgn186601/20/2024 8:15 AM WHWKnafwuofhbq76.3 ??C (97.4 ??F)12/09/2022 9:31 AM EDTRespiratory Hhok7074 9:31 AM EDTOxygen Byapbmtiaf94%12/09/2022 9:31 AM EDTInhaled Oxygen Concentration--Ihdqwt76.3 kg (194 lb 12 oz)12/18/2024 1:08 PM GGGLylepy093.1 cm (5' 5 )01/20/2024 8:15 AM ESTBody Mass Index32.41103/22/2023 8:15 AM EST Plan of Treatment DateTypeDepartmentCare Team (Latest Contact Info)Vbuazqrkynl76/05/2026 9:00 AM ESTProcedure Visit [facility] [address] [place] [address] Elif Riddle PA [address] [facility] [place] [address] Care Teams Team MemberRelationshipSpecialtyStart DateEnd Jessica Mcghee MD PCP - GeneralFamily Medicine07/20/23 Jesica Cobb NP [address] [place] [address] Nurse PractitionerFamily Medicine07/20/23
--- OUTSIDE RECORDS SUMMARY | 2024-12-18 20:05 | XMS_ITS | Encounter Summary ---
Author Organization [facility] Healthcare Address [address] [place] [address] Care Team Providers Care Supervisor [place] Name Role Phone LitzyJessica MD Primary Care Provider [phone] Jesica Cobb EXPERIENCE DESIGNER Unavailable [phone] Encounter Details DateTypeDepartmentCare Team (Latest Contact Info)Ghhzwkwsjtd36/03/2025Travel Social History Tobacco UseTypesPacks/DayYears UsedDateSmoking Tobacco: NeverSmokeless [...] relatives?Once a week12/08/2022How often do you attend nondenominational or sikh services?More than 4 times per year10/24/2023Do you belong to any clubs or organizations such as nondenominational groups, unions, fraternal or athletic groups, or school groups?No12/08/2022How often [...] care, and heating?Hard12/08/2022HQ-2 AnswerDate RecordedPatient Health Questionnaire-2 Uktcg10503/22/2023Fin[facility] [place] of Occupational Health - Occupational Stress QuestionnaireAnswerDate [...] now)?No12/08/2022CommentsNoSex and Gender InformationValueDate RecordedSex Assigned at EjapxQygqtp24/12/2023 6:24 PM EDT Legal ZzyAoypvn43/15/2023 7:59 PM EDTGender QngddxqqFzhwww25/15/2023 7:59 PM EDT Sexual VjypofdueqtUxlsvgbp25/12/2023 6:24 PM EDTdocumented as of this encounter Plan of Treatment DateTypeDepartmentCare Team (Latest Contact Info)Lkoabbxcebz87/05/2026 9:00 AM ESTProcedure Visit [facility] [address] [address] [place] [address] Elif Riddle PA [address] [facility] [place] [address] documented as of this encounter Visit Diagnoses Not on filedocumented in this encounter Additional Health Concerns AssessmentNoted TimePHQ-9 Depression Total Score: 8:00 AM EST documented as of this encounter Care Teams Team MemberRelationshipSpecialtyStart DateEnd Date Jessica Mcghee MD PCP - GeneralFamily Medicine07/20/23 Jesica Cobb NP [address] [place] [address] Nurse PractitionerFamily Medicine07/20/23documented as of this encounter
--- OUTSIDE RECORDS SUMMARY | 2024-12-18 20:05 | XMS_ITS | Encounter Summary ---
Author Organization [facility] Address [address] [place] [address] Care Team Providers Care Candle Wrapper Name Role Phone Litzy Jessica Stevens MD Primary Care Provider [phone] Jesica Cobb TITLE LAWYER Unavailable [phone] Reason for Visit * ReasonCommentsMed Refill Encounter Details DateTypeDepartmentCare Team (Latest Contact Info)Witholymgxk25/24/2025Refill NOMCarlos [facility] [address] [facility] [place] [address] Elif Riddle PA [address] [facility] [place] [address] control counseling Social History Tobacco UseTypesPacks/DayYears UsedDateSmoking Tobacco: NeverSmokeless [...] relatives?Once a week12/08/2022How often do you attend religion or pentecostalism services?More than 4 times per year12/08/2022o you belong to any clubs or organizations such as religion groups, unions, fraternal or athletic groups, or [...] care, and heating?Hard12/08/2022HQ-2 AnswerDate RecordedPatient Health Questionnaire-2 Wdhtd14803/22/2023Finshr[facility] [address] of Occupational Health - Occupational Stress QuestionnaireAnswerDate [...] now)?No12/08/2022CommentsNoSex and Gender InformationValueDate RecordedSex Assigned at EksukVtrlne83/12/2023 6:24 PM EDT Legal WadKfrdnd53/15/2023 7:59 PM EDTGender KbmjaxcdMgpnfn46/15/2023 7:59 PM EDT Sexual PmclvpejyhbQjhfjqvu36/12/2023 6:24 PM EDTdocumented as of this encounter Plan of Treatment DateTypeDepartmentCare Team (Latest Contact Info)Hlylxvwwxdq17/05/2026 9:00 AM ESTProcedure Visit [facility] [address] [facility] [place] [phone] Elif Riddle PA [address] [facility] [place] [address] documented as of this encounter Visit Diagnoses Diagnosis control counseling documented in this encounter Additional Health Concerns AssessmentNoted TimePHQ-9 Depression Total Score: 8:00 AM EST documented as of this encounter Care Teams Team MemberRelationshipSpecialtyStart DateEnd Jessica Mcghee MD PCP - GeneralFamily Medicine07/20/23 Jesica Cobb NP [address] [place] [address] Nurse PractitionerFamily Medicine07/20/23documented as of this encounter
--- OUTSIDE RECORDS SUMMARY | 2024-12-18 20:05 | XMS_ITS | Encounter Summary ---
Author Organization [facility] Address [address] [facility] [place] [address] Care Team Providers Care Surgical Assistant Name Role Phone Litzy Jessica Stevens MD Primary Care Provider [phone] Jesica Cobb CLINICAL APPEALS SPECIALIST Unavailable [phone] Encounter Details DateTypeDepartmentCare Team (Latest Contact Info)Rtpieiysmhj28/03/2025amboo flowsheet SUMA Douglas OBPATRICK [address] [place] [address] Elif Riddle PA [address] [facility] [address] [place], [place] [address] Social History Tobacco UseTypesPacks/DayYears UsedDateSmoking Tobacco: NeverSmokeless [...] relatives?Once a week12/08/2022How often do you attend christian or lutheran services?More than 4 times per year12/08/2022o you belong to any clubs or organizations such as christian groups, unions, fraternal or athletic groups, or [...] care, and heating?Hard12/08/2022HQ-2 AnswerDate RecordedPatient Health Questionnaire-2 Tteas47403/22/2023Fin[facility] [place] of Occupational Health - Occupational Stress QuestionnaireAnswerDate [...] now)?No12/08/2022CommentsNoSex and Gender InformationValueDate RecordedSex Assigned at TlswoHfcnei15/12/2023 6:24 PM EDT Legal EpwDmgqxd43/15/2023 7:59 PM EDTGender NpajhgbzPbuosv64/15/2023 7:59 PM EDT Sexual UxhbjppkuzaGgakrqtm00/12/2023 6:24 PM EDTdocumented as of this encounter Plan of Treatment DateTypeDepartmentCare Team (Latest Contact Info)Modjkrdmkya08/05/2026 9:00 AM ESTProcedure Visit [facility] [address] [facility] [place] [address] Elif Riddle PA [address] [facility] [address] [place], [place] [id number] documented as of this encounter Visit Diagnoses Not on filedocumented in this encounter Additional Health Concerns AssessmentNoted TimePHQ-9 Depression Total Score: 8:00 AM EST documented as of this encounter Care Teams Team MemberRelationshipSpecialtyStart DateEnd Jessica Mcghee MD PCP - GeneralFamily Medicine07/20/23 Jesica Cobb NP [address] [place] [address] Nurse PractitionerFamily Medicine07/20/23documented as of this encounter
[2024-12-21 09:09] LABS: Age Gdln ACOG Testing Note (.); IGP, Aptima HPV, rfx 16/18,45 Note (.)
== END 2024-12-18 20:02 | disposition home or self-care (01) ==
LOC: LAB 20:01
PROVIDERS: Visit Provider Physician Assistant
DX: Z01.419 Encounter for gynecological examination (general) (routine) without abnormal findings (principal)
CPT/HCPCS: 87624; 88175